=== PATIENT | female | born 1990 ===

== ENCOUNTER 2016-08-19 08:52 | Emergency (ER) | payer MEDICAID ==
[2016-08-19 09:11] VITALS: BP 105/73; PULSE 93; RESP 16; TEMP 98.7; O2SAT 99
--- NOTE | 2016-08-19 09:27 | ED PDOC ---
HPI: Female Pain Time Seen by Provider: 08/19/16 09:07 Chief Complaint (Nursing): Female Genitourinary Chief Complaint (Provider): dysuria History Per: Patient History/Exam Limitations: no limitations Additional Complaint(s): 26yo female w/ Hx recurrent UTI last approximately 1 month ago. She completed course of cipro prescribed by doctor in [facility]. She now returns with similar symptoms: urinary frequency, frequency, dysuria and suprapubic pain. She had leftover pyridium which she took 2 doses last night. Past Medical History Reviewed: Historical Data, Nursing Documentation, Vital Signs Vital Signs: Last Vital Signs Temp 98.7 F 08/19/16 09:03 Pulse 93 H 08/19/16 09:03 Resp 16 08/19/16 09:03 BP 105/73 08/19/16 09:03 Pulse Ox 99 08/19/16 09:03 - Medical History Other PMH: UTI - Family History Family History: States: Unknown Family Hx - Social History Current smoker - smoking cessation education provided: No - Home Medications Home Medications: Ambulatory Orders Medication Instructions Recorded Nitrofurantoin Macrocrystals 100 mg PO BID #14 cap 08/19/16 [Macrobid] Phenazopyridine [Pyridium] 100 mg PO PC #6 tab 08/19/16 - Allergies Allergies/Adverse Reactions: Allergies Allergy/AdvReac Type Severity Reaction Status Date / Time No Known Allergies Allergy Verified 08/19/16 09:03 Review of Systems ROS Statement: Except As Marked, All Systems Reviewed And Found Negative Genitourinary Female: Positive for: Dysuria, Frequency, Hematuria, Other ( suprapubic pain) Physical Exam - Reviewed Nursing Documentation Reviewed: Yes Vital Signs Reviewed: Yes - Physical Exam Appears: Positive for: Well, Non-toxic, No Acute Distress Head Exam: Positive for: ATRAUMATIC, NORMAL INSPECTION, NORMOCEPHALIC Skin: Positive for: Warm, Dry Cardiovascular/Chest: Positive for: Regular Rate, Rhythm Respiratory: Negative for: Respiratory Distress Gastrointestinal/Abdominal: Positive for: Normal Exam, Soft. Negative for: Tenderness Back: Negative for: L CVA Tenderness, R CVA Tenderness Extremity: Positive for: Normal ROM Neurologic/Psych: Positive for: Alert, Oriented - ECG O2 Sat by Pulse Oximetry: 99 (RA) Pulse Ox Interpretation: Normal Medical Decision Making Medical Decision Making: pt has had recurrent UTIs, will obtain culture and start macrobid. Refer urology for definitive care. No signs fever or back pain to suggest pyelonephritis. edit 08/23/16- culture results returned, called pt left message to change Abx to PCN based. Disposition - Clinical Impression Clinical Impression: UTI (urinary tract infection) - Patient ED Disposition Is Patient to be Admitted: No Counseled Patient/Family Regarding: Studies Performed, Diagnosis, Need For Followup, Rx Given - Disposition Referrals: Ky Ross MD [Staff Provider] - Disposition: Routine/Home Disposition Time: 09:30 Condition: STABLE Additional Instructions: Urine culture will be available in 48-72hrs. Take antibiotic as directed. Return to ER for any new symptoms, fever/back pain, or any concern. Drink plenty of water. For recurrent UTIs, you will likely need to see a urologist or urogynecologist for further testing and possible imaging. Prescriptions: Nitrofurantoin Macrocrystals [Macrobid] 100 mg PO BID #14 cap Phenazopyridine [Pyridium] 100 mg PO PC #6 tab Instructions: Urinary Tract Infection in Women (DC) Additional Comments - Additional Comments Additional Comments: Scribe Attestation: Documented by Ezekiel Short, acting as a scribe for Tk Gee DO. Provider Scribe Attestation: All medical record entries made by the Scribe were at my direction and personally dictated by me. I have reviewed the chart and agree that the record accurately reflects my personal performance of the history, physical exam, medical decision making, and the department course for this patient. I have also personally directed, reviewed, and agree with the discharge instructions and disposition.
[2016-08-19 10:09] LABS: RBC URINE 1 /hpf (0-3); URINE BILIRUBIN NEGATIVE (NEGATIVE); URINE BLOOD NEGATIVE (NEGATIVE); URINE COLOR RED (YELLOW); URINE GLUCOSE (UA) 50 mg/dL (Normal); URINE KETONE NEGATIVE (NEGATIVE); URINE LEUKOCYTE ESTERASE TRACE Leu/uL (Negative); URINE PROTEIN 100 mg/dL (NEGATIVE); WBC URINE 10 /hpf (0-5)
== END 2016-08-19 10:15 | disposition home or self-care (01) ==
LOC: H.ER 08:52
DX: N39.0 Urinary tract infection, site not specified (principal)

== ENCOUNTER 2016-10-02 17:21 | Emergency (ER) | payer MEDICAID ==
[2016-10-02 17:48] VITALS: BP 126/65; PULSE 70; RESP 18; O2SAT 100
--- NOTE | 2016-10-02 18:31 | ED PDOC ---
HPI: CCC, URI, Sore Throat Time Seen by Provider: 10/02/16 17:49 Chief Complaint (Nursing): ENT Problem Chief Complaint (Provider): ear pain History Per: Patient History/Exam Limitations: no limitations Have you had recent travel within the past 21 days to any of the following countries: [place], [place], [place] or [place]?: No Onset/Duration Of Symptoms: Days (x 5) Current Symptoms Are (Timing): Still Present Location Of Pain: Ear(s) Additional Complaint(s): Semaj Veloz is a 26 year old female, with no previous medical history, who presents to the ED for the evaluation of ear pain she has been experiencing since yesterday. Patient reports she is currently on her 4th day of amoxicillin 500 mg for a throat injection along with Clearitin. She reports ear pain in the right ear which started last night and mild ear pain to the left ear which started this morning. She reports to feeling warm but denies taking her temperature. PMD: none provided Past Medical History Reviewed: Historical Data, Nursing Documentation, Vital Signs Vital Signs: Last Vital Signs Temp Pulse 70 10/02/16 17:42 Resp 18 10/02/16 17:42 BP 126/65 10/02/16 17:42 Pulse Ox 100 10/02/16 17:42 - Medical History PMH: No Chronic Diseases - Surgical History Surgical History: No Surg Hx - Family History Family History: States: Unknown Family Hx - Home Medications Home Medications: Ambulatory Orders Medication Instructions Recorded Nitrofurantoin Macrocrystals 100 mg PO BID #14 cap 08/19/16 [Macrobid] Phenazopyridine [Pyridium] 100 mg PO PC #6 tab 08/19/16 Amoxicillin/Clavulanate [Augmentin 1 tab PO BID #20 tab 10/02/16 875 MG-125 MG] - Allergies Allergies/Adverse Reactions: Allergies Allergy/AdvReac Type Severity Reaction Status Date / Time No Known Allergies Allergy Verified 08/19/16 09:03 Review of Systems ROS Statement: Except As Marked, All Systems Reviewed And Found Negative ENT: Positive for: Ear Pain Physical Exam - Reviewed Nursing Documentation Reviewed: Yes Vital Signs Reviewed: Yes - Physical Exam Appears: Positive for: Well, Non-toxic, No Acute Distress ENT: Positive for: TM Is/Are (right TM errythematous but no perforation noted ) . Negative for: Pharyngeal Erythema, Tonsillar Exudate, Tonsillar Swelling Cardiovascular/Chest: Positive for: Regular Rate, Rhythm Respiratory: Positive for: CNT, Normal Breath Sounds Neurologic/Psych: Positive for: Alert, Oriented - ECG O2 Sat by Pulse Oximetry: 100 (RA) Pulse Ox Interpretation: Normal Medical Decision Making Medical Decision Making: Initial Impression: Ear Pain Initial Plan: * physical exam * disposition Scribe Attestation: Documented by Rosamaria Medel, acting as a scribe for Jacqueline Rodgers PA-C. Provider Scribe Attestation: All medical record entries made by the Scribe were at my direction and personally dictated by me. I have reviewed the chart and agree that the record accurately reflects my personal performance of the history, physical exam, medical decision making, and the department course for this patient. I have also personally directed, reviewed, and agree with the discharge instructions and disposition. Disposition - Clinical Impression Clinical Impression: Otitis media - Disposition Condition: STABLE Prescriptions: Amoxicillin/Clavulanate [Augmentin 875 MG-125 MG] 1 tab PO BID #20 tab Instructions: Otitis Media (ED)
== END 2016-10-02 18:33 | disposition home or self-care (01) ==
LOC: H.ER 17:21
DX: H66.90 Otitis media, unspecified, unspecified ear (principal)